=== PATIENT | male | born 1995 | race Caucasian/White ===

== ENCOUNTER 2016-10-27 13:21 | Inpatient (IN) | payer SELFPAY ==
[~2016-10-27] VITALS: Ht 160 cm; Wt 76.8 kg
--- NOTE | ~2016-10-27 | WND ---
ADMIT: 10/27/2016 RM/LOC: 425 [facility] MR#: [id number] [address] [place] [address] Wound Care Clinic SEX: M AGE: 21 : 1995 DATE OF VISIT: 10/27/2016 TIME OF VISIT: 40 minutes. CHIEF COMPLAINT: Arm pain. HISTORY OF PRESENT ILLNESS: Luca is a homeless 21-year-old, white male, who presented to the emergency room with bilateral arm pain. He is an IV drug user including methamphetamines and reported a 3-day history of arm swelling and pain where some needle sites have been attempted. These were opened up and drained in the emergency room and packed. He was sent to the hospital for IV Zosyn and vancomycin. His potassium was 343. He is asleep in the bed in room 425, but easily awakened. He reports his pain is an 8/10. He denies any fever or chills. PAST MEDICAL HISTORY: None. SOCIAL HISTORY: He reports illicit drug use with marijuana and methamphetamine IV. He smokes about half a pack a day of cigarettes. He denies any alcohol use. He reports he is from [place] and that it is a long story how he got to [place]. He is currently homeless. REVIEW OF SYSTEMS: Denies fever or chills. He denies nausea, vomiting, or diarrhea. He denies any pruritus. He denies chest pain, shortness of breath, or cough. CURRENT MEDICATIONS: 1. Vancomycin. 2. Zosyn. ALLERGIES: No known medication allergies. PHYSICAL EXAMINATION: VITAL SIGNS: Height 5 feet 3 inches, weight 180 pounds, blood pressure 140/68, pulse 100, pulse ox 99% on room air, respirations 14, temperature 98.8 degrees Fahrenheit. Assessment of his left upper extremity reveals a palpable radial pulse. He has an open area to his left forearm. Circumferential measurement over the wound bed is 26.5 cm. He has gauze packing in the wound. The wound is approximately 0.7 cm circumferential. There is 3 cm of undermining from 12 o'clock to 3 o'clock. He has periwound erythema. It is exquisitely painful when I pulled out the packing. He was yelling in the room. Periwound skin is indurated. Assessment of the right forearm reveals 2 open areas on the lateral distal. He has an open area that is 0.5 cm in length x 0.2 cm in width x 1 cm in depth. At 3 o'clock, undermining is 1 cm; at 6 o'clock, it is 2 cm; and at 9 o'clock, it is 0.7 cm. There is periwound induration and erythema extending out approximately 5 cm circumferential. Again, this is exquisitely tender to palpation. There is a moderate amount of purulent drainage noted on the packing that was removed. Assessment of the proximal medial forearm reveals another full-thickness opening that is 0.7 cm x 0.2 cm ADMIT: 10/27/2016 RM/LOC: 425 [facility] MR#: [id number] [address] [place] [address] Wound Care Clinic SEX: M AGE: 21 : 1995 x 0.8 cm. At 6 o'clock, there is undermining of 1 cm; at 12 o'clock, there is undermining of 1 cm. This wound has erythema and induration extending out to 3.5 cm circumferential. Circumferential measurement of the forearm are 32.5 cm, of the wrist is 22.5 cm. The patient has palpable radial pulse on the right forearm. ASSESSMENT AND PLAN: 1. Arm abscesses. I and D was performed in the emergency room on October 27, 2016. 2. Cellulitis with severe sepsis. He is currently on IV Zosyn and vancomycin. 3. History of methamphetamine with polysubstance abuse. PLAN: The wounds were irrigated with normal saline and lightly packed with ribbon gauze covered with a gauze cover dressing and secured with Kerlix. The patient will need twice daily dressing changes, which consist of irrigating the wound well with normal saline, lightly packing the wound with ribbon gauze and applying a gauze cover dressing securing with Kerlix. WOCNs will follow along while the patient is in the hospital. I would like to thank Dr. Díaz for allowing us to participate in his care. Paty Brothers APRN/ shira JOB #: [id number] CC: Jose A Díaz, Attending Physician Jose A Díaz, Family Physician
--- NOTE | 2016-10-29 12:26 | ER ---
ADMIT: 10/27/2016 RM/LOC: 425 [facility] MR#: [id number] [address] [place] [address] Emergency Room Report SEX: M AGE: 21 : 1995 DATE: 10/27/2016 ADDENDUM: A 21-year-old, white male who is an IV drug user coming in after attempting to shoot up. He has abscess, cellulitis in both arms. Significant pus on I and D. He has been cultured up. We started him on Zosyn and vanc. He is homeless without money. Lives on the [address]. At this time, after we I and D him, we put an IV in, I gave him Toradol 30 IV. The abscesses were I and D'd and packed. Then the wounds dressed. Dr. Díaz, [facility] call will admit. CONDITION ON DISCHARGE: Serious but stable. Javid Day MD/ shira JOB #: [id number] CC: Jose A Díaz MD, Attending Physician Jose A Díaz MD, Family Physician
--- NOTE | 2016-10-30 10:19 | HP ---
ADMIT: 10/27/2016 RM/LOC: 425 [facility] MR#: [id number] [facility] [address] [place] [address] [place] [address] History and Physical SEX: M AGE: 21 : 1995 DATE OF SERVICE: 10/27/2016 CHIEF COMPLAINT: Arm pain. HISTORY OF PRESENT ILLNESS: This is a 21-year-old gentleman with little past medical history, he lives on the [address]. He does IV methamphetamines, he presented with about a three-day history of arm swelling and pain where some needle sites have been attempted. He had three distinct abscesses on his upper extremities. These were quite painful. His right arm was worse than his left. In the emergency room, he had all three of these incised and drained. He had packing placed. These were each cultured. He had some Toradol given for pain relief. He had a lactic acid that was mildly elevated, potassium that was 343. He denies any other complaints at this time. Then, he had some abnormal appearing urine but reports he has not really eaten very much or drank very much in the past few days. PAST HISTORY: None. SOCIAL HISTORY: He does admit to marijuana use and methamphetamine use. He smokes about one half pack per day of cigarettes. Negligible alcohol use. Again, denies having any close family. Denies significant family history. REVIEW OF SYSTEMS: Other complete review of systems obtained negative except as above. PHYSICAL EXAMINATION: VITAL SIGNS: Blood pressure 121/84, heart rate 113, respirations 18, temp 98.1, he is 100% on room air. GENERAL: This is an unkempt appearing 21-year-old male. He is in no apparent distress. He is in upper extremity dressings bilaterally. HEENT: Pupils equal, round, and reactive to light and accommodation. Extraocular muscles are intact. Throat is clear. NECK: Supple. HEART: Regular rate and rhythm. LUNGS: His lungs are clear to auscultation bilaterally. ABDOMEN: Soft, nontender. EXTREMITIES: Lower extremities have no edema. His cranial nerves are intact. He can move all extremities equally bilaterally. His right hand is swollen. Right extremity has two wounds, left has one, these were packed and bandaged at the current time. ADMIT: 10/27/2016 RM/LOC: 425 [facility] MR#: [id number] [address] [place] [address] History and Physical SEX: M AGE: 21 : 1995 LABORATORY AND X-RAY DATA: As above. White count was 17,000. ASSESSMENT AND PLAN: 1. Arm abscesses. 2. Cellulitis with severe sepsis. 3. History of methamphetamine. 4. With polysubstance abuse. 5. Hypokalemia. PLAN: He is admitted to the hospital. Given some IV fluids. Watch his potassium closely. Await the cultures. Treating with Zosyn and vancomycin because of his risk for resistant organisms. Jose A Díaz MD/ shira JOB #: [id number] CC: Jose A Díaz, Attending Physician Jose A Díaz, Family Physician
[2016-10-30] MEDS ORDERED: KEFLEX-DPS500 MG PO (17:26)
[2016-10-30] MEDS ORDERED: BACITRACIN15 G1 TP (17:26)
--- NOTE | 2016-11-01 07:55 | DS ---
ADMIT: 10/27/2016 RM/LOC: 425 [facility] MR#: [id number] [address] [place] [address] General Discharge Summary SEX: M AGE: 21 : 1995 ADMISSION DATE: 10/27/2016 DISCHARGE DATE: 10/29/2016 FINAL DIAGNOSIS: 1. Bilateral arm abscesses with cellulitis with severe sepsis secondary to Proteus and strep. 2. Drug abuse. 3. Hypokalemia. REASON FOR ADMISSION: This is a 21-year-old gentleman, who lives on the street. He uses some IV methamphetamines and cannabinoids. He was admitted with arm swelling, cellulitis, and arm abscesses. HOSPITAL COURSE: His abscesses were I and D in the emergency room. These were packed. Wound care continued throughout his hospital stay. He was initially put on Zosyn and vancomycin. Ultimately, his wound showed to be strep and Proteus, that was gonzalez sensitive. He was set up with oral antibiotics and for him to be discharged on. He was instructed on wound care, extensively, and told to follow up with in the emergency room or my office if he needs to make sure this gets taken care of or he risks losing his upper extremities or even . He understood. He was also supposed to stay away from his or stay way from IV drug use because of the severe infections. Follow up will be with me in 1 to 2 weeks if he is here or with any care provider he seeks wherever he plans to go. Jose A Díaz MD/ shira JOB #: [id number] CC: Jose A Díaz MD, Attending Physician FAMILY PHYSICIAN, Family Physician
== END 2016-10-29 15:38 | disposition home or self-care (01) | DRG 853 ==
LOC: ER 13:21 → 4PCU 15:50
PROVIDERS: ADMIT Internal Medicine
PROC: 0J9H0ZZ Drainage of Left Lower Arm Subcutaneous Tissue and Fascia, Open Approach (ICD-10-PCS; principal; 2016-10-27)
PROC: 0J9G0ZZ Drainage of Right Lower Arm Subcutaneous Tissue and Fascia, Open Approach (ICD-10-PCS; principal; 2016-10-27)
DX: A40.9 Streptococcal sepsis, unspecified (principal); N17.0 Acute kidney failure with tubular necrosis; L02.413 Cutaneous abscess of right upper limb; L02.414 Cutaneous abscess of left upper limb; L03.114 Cellulitis of left upper limb; L03.113 Cellulitis of right upper limb; A41.89 Other specified sepsis; E86.0 Dehydration; R65.20 Severe sepsis without septic shock; F17.210 Nicotine dependence, cigarettes, uncomplicated; E87.6 Hypokalemia; Z59.0 Homelessness; F12.10 Cannabis abuse, uncomplicated; F15.10 Other stimulant abuse, uncomplicated; Z72.811 Adult antisocial behavior

== ENCOUNTER 2016-12-21 16:31 | Emergency (ER) | payer SELFPAY ==
[~2016-12-21 16:31] MED LIST: BACITRACIN15 G1 TP; KEFLEX-DPS500 MG PO
--- NOTE | 2017-01-06 15:33 | ER ---
ADMIT: 12/21/2016 RM/LOC: ER [facility] MR#: [id number] [facility] [address] [place], [place] [address] [place] [address] Emergency Room Report SEX: M AGE: 21 : 1995 CORRECTED: 12/22/2016 0700 [facility] DATE: 12/21/2016 HISTORY OF PRESENT ILLNESS: Brought in by 2 police officers for evaluation and medical clearance. He is homeless. Apparently, he was found eating from a trash can by police officers and that was 2 days ago. He also was seen walking on the street in front of traffic, almost got hit by a car, so police officers picked him up and brought him in. They would like to put him in custody for his own protection because he does not have a place to go and is strong on drugs. Upon asking him, he states he was candy flipping and he has had some Xanax. Among other things, the assistant chief of police stated that he also has done meth IV. He denies getting hit in the head or having any trauma. On examination, he does not seem to have any contusion, laceration. Simply he is going to be taken in for his protection until he can get off his drugs. The officers cannot find more about his family. He states he is from [place], and his friends they ditch him in [place]. He has no ID with him. PHYSICAL EXAMINATION: GENERAL: On examination, very poor historian, slurred speech, really sleepy. VITAL SIGNS: Blood pressure is 132/77. He is also hallucinating, sees things, pulse is 118, respirations 14, O2 sats 100. MEDICATIONS: Takes none. ALLERGIES: HE HAS NO ALLERGIES. CLINICAL IMPRESSION: Medical clearance, street drug use. PLAN: Discharged to police custody. ZACH Red / Javid Day MD / modl JOB #: [id number] CC: Javid Day MD, Attending Physician Yamilka Dye MD, Family Physician CORRECTED: 12/22/2016 0700 [facility]V
== END 2016-12-21 16:50 | disposition home or self-care (01) ==
LOC: ER 16:31
DX: F15.90 Other stimulant use, unspecified, uncomplicated (principal)